=== PATIENT | female | born 1950 | race Caucasian/White ===

== ENCOUNTER 2022-07-08 11:13 | Inpatient (IN) | payer MEDICARE, OTHER ==
[2022-07-08] VITALS (9 sets, daily range): BP systolic 113–145; BP diastolic 51–80; PULSE 64–84; TEMP 97.5–98.5
[~2022-07-08] VITALS: Ht 170.2 cm; Wt 60.0 kg
[2022-07-08 11:55] LABS: BASO # 0.1 K/mm3 (0.0-0.2); BASO % 0.8 % (0.0-2.0); EOS # 0.1 K/mm3 (0.0-0.7); EOS % 1.7 % (0.0-4.0); GRAN # 4.3 K/mm3 (1.4-6.5); GRAN % 57.6 % (42.2-75.2); HEMOGLOBIN 13.5 g/dl (12.5-16.0); LYMPH # 2.3 K/mm3 (1.2-3.4); LYMPH % 30.8 % (20.0-51.0); MEAN CELL VOLUME 101 fl (80.0-100.0); MEAN CORPUSCULAR HEMOGLOBIN 33 pg (27-31); MEAN CORPUSCULAR HGB CONC 32 g/dl (33.0-37.0); MEAN PLATELET VOLUME 10.4 fl (7.4-10.4); MONO # 0.7 K/mm3 (0.1-0.6); PLATELET COUNT 242 K/mm3 (130-400); RED BLOOD COUNT 4.15 M/mm3 (4.10-5.30); REDCELL DISTRIBUTION WIDTH-CV 11.9 % (11.5-14.5)
[2022-07-08 11:57] LABS: PROTHROMBIN TIME 11.6 SECONDS (9.7-12.8)
[2022-07-08 12:00] LABS: PARTIAL THROMBOPLASTIN TIME 31.5 SECONDS (26.0-37.0)
[2022-07-08 12:11] LABS: ALANINE AMINOTRANSFERASE 20 U/L (0-55); ALBUMIN 4.2 gm/dL (3.4-4.8); ALKALINE PHOSPHATASE 38 U/L (40-150); ANION GAP 11 mmol/L (7-16); AST,SGOT 25 U/L (5-34); BILIRUBIN,TOTAL 0.6 mg/dL (0.2-1.2); BLOOD UREA NITROGEN 16 mg/dL (10-20); CALCIUM 9.3 mg/dL (8.4-10.2); CARBON DIOXIDE 25 mmol/L (23-31); CHLORIDE 105 mmol/L (98-107); CREATININE, serum 0.61 mg/dL (0.57-1.11); GLUCOSE 92 mg/dL (70-99); SODIUM 141 mmol/L (136-145); TOTAL PROTEIN 6.8 gm/dL (6.2-8.1)
[2022-07-08 12:25] LABS: TROPONIN-I < 0.010 ng/mL (0.00-0.033)
[2022-07-08 15:10] LABS: MAGNESIUM 1.8 mg/dL (1.6-2.6)
[2022-07-08 15:31] LABS: TSH w REFLEX 2.184 uIU/mL (0.350-4.940)
--- NOTE | 2022-07-08 15:35 | NUR ---
Patient to room 316 from the [facility]. A&Ox4. VSS, post op VS monitored. IV CDI, fluids infusing. Incision site middle chest CDI. Denies pain and discomfort. Nurse oriented the patient and to location, call light and room. No further needs expressed. Call light within reach
[2022-07-08] MEDS ORDERED: PRAVACHOL 40MG40 MG PO (16:03)
[2022-07-08] MEDS ORDERED: LEXAPRO20 MG PO (16:03)
[2022-07-08] MEDS ORDERED: ALEVE 220MG220 MG PO (16:04)
[2022-07-08] MEDS ORDERED: PROLIA60 MG/ML SQ (16:05)
[2022-07-09] VITALS (10 sets, daily range): BP systolic 111–141; BP diastolic 42–88; PULSE 55–69; TEMP 97.4–98.8
[2022-07-09 06:27] LABS: BASO % 0.8 % (0.0-2.0); EOS # 0.1 K/mm3 (0.0-0.7); EOS % 1.9 % (0.0-4.0); GRAN # 3.2 K/mm3 (1.4-6.5); GRAN % 60.2 % (42.2-75.2); HEMATOCRIT 38.3 % (37.0-47.0); HEMOGLOBIN 12.2 g/dl (12.5-16.0); LYMPH # 1.4 K/mm3 (1.2-3.4); LYMPH % 26.9 % (20.0-51.0); MEAN CELL VOLUME 102 fl (80.0-100.0); MEAN CORPUSCULAR HEMOGLOBIN 33 pg (27-31); MEAN CORPUSCULAR HGB CONC 32 g/dl (33.0-37.0); MEAN PLATELET VOLUME 11.1 fl (7.4-10.4); MONO # 0.5 K/mm3 (0.1-0.6); PLATELET COUNT 229 K/mm3 (130-400); RED BLOOD COUNT 3.75 M/mm3 (4.10-5.30); REDCELL DISTRIBUTION WIDTH-CV 11.8 % (11.5-14.5)
[2022-07-09 06:37] LABS: CALCIUM 9.1 mg/dL (8.4-10.2); CREATININE, serum 0.63 mg/dL (0.57-1.11); MAGNESIUM 1.9 mg/dL (1.6-2.6); POTASSIUM 4.2 mmol/L (3.5-4.5)
--- NOTE | 2022-07-09 08:00 | NUR ---
Patient sitting up in bed, A&O. VSS IV CDI. Denies pain and discomfort. Nelson intact. No reports of diarrhea. Call light within reach. Bed alarm on
--- NOTE | 2022-07-09 08:00 | NUR ---
Patient sitting up in bed, A&Ox4. VSS. IV CDI. Denies pain and discomfort. Has several questions/concerns that this nurse was able to answer. Call light within reach
--- NOTE | 2022-07-09 23:17 | NUR ---
Pt in bed for the time of assessment around 2100. Granddaughter at bedside. A&O x4. LAC INT is CDI. No needs or concerns were expressed during assessment. All medication given per emar. Belongings and call light are within reach.
[2022-07-10 01:03] VITALS: PULSE 55; TEMP 97.8
[2022-07-10 03:57] VITALS: BP 125/57; PULSE 58; TEMP 98.1
[2022-07-10 05:00] VITALS: PULSE 58; TEMP 98.1
[2022-07-10 06:20] LABS: BASO # 0.1 K/mm3 (0.0-0.2); EOS # 0.1 K/mm3 (0.0-0.7); EOS % 1.6 % (0.0-4.0); GRAN % 59.5 % (42.2-75.2); HEMOGLOBIN 12.4 g/dl (12.5-16.0); LYMPH # 1.4 K/mm3 (1.2-3.4); LYMPH % 26.8 % (20.0-51.0); MEAN CELL VOLUME 99 fl (80.0-100.0); MEAN CORPUSCULAR HEMOGLOBIN 32 pg (27-31); MEAN CORPUSCULAR HGB CONC 33 g/dl (33.0-37.0); MEAN PLATELET VOLUME 10.3 fl (7.4-10.4); MONO # 0.5 K/mm3 (0.1-0.6); MONO % 10.7 % (1.7-9.3); PLATELET COUNT 211 K/mm3 (130-400); RED BLOOD COUNT 3.83 M/mm3 (4.10-5.30); REDCELL DISTRIBUTION WIDTH-CV 11.8 % (11.5-14.5)
[2022-07-10 06:36] LABS: CREATININE, serum 0.64 mg/dL (0.57-1.11); MAGNESIUM 1.8 mg/dL (1.6-2.6); POTASSIUM 3.9 mmol/L (3.5-4.5)
[2022-07-10 07:08] VITALS: BP 117/63; PULSE 61; TEMP 97.9
--- NOTE | 2022-07-10 07:18 | NUR ---
Patient laying in bed sleeping, easily awakened with verbal command. A&Ox4. VSS. IV CDI. Denies pain and discomfort. Call light within reach
[2022-07-10] MEDS ORDERED: ELIQUIS 5MG PO (09:15)
[2022-07-10] MEDS ORDERED: CEPHALEXIN500 M1 PO (09:15)
[2022-07-10] MEDS ORDERED: BETAPACE 80MG80 MG PO (09:16)
--- NOTE | 2022-07-10 11:15 | NUR ---
Discharge paperwork reviewed with the patient and at the bedside. Patient verbalized an understanding to follow doctors orders. IV removed, tip intact. Gauze and coban covering. Patient ambulated independently to awaiting vehicle with personal belongings
== END 2022-07-10 11:15 | disposition home or self-care (01) | DRG 262 ==
LOC: COL.ER 11:13 → MEDICAL 13:18
PROVIDERS: Family Medicine; Physician Assistant; ADMIT Student in an Organized Health Care Education/Training Program
PROC: 5A2204Z Restoration of Cardiac Rhythm, Single (ICD-10-PCS; principal; 2022-07-08)
PROC: 0JH632Z Insertion of Monitoring Device into Chest Subcutaneous Tissue and Fascia, Percutaneous Approach (ICD-10-PCS; 2022-07-08)
DX: I48.91 Unspecified atrial fibrillation (principal); E78.5 Hyperlipidemia, unspecified; F32.A Depression, unspecified; M79.7 Fibromyalgia; K59.00 Constipation, unspecified; I10 Essential (primary) hypertension; J44.9 Chronic obstructive pulmonary disease, unspecified; M81.0 Age-related osteoporosis without current pathological fracture; Z23 Encounter for immunization; Z87.891 Personal history of nicotine dependence
CPT/HCPCS: OP; C1764; J1644; J2704; J7030

== ENCOUNTER 2023-10-11 14:51 | Outpatient (CLI) | payer MEDICARE, OTHER ==
[~2023-10-11] VITALS: Ht 170.2 cm; Wt 62.0 kg
[~2023-10-11 14:51] MED LIST: ALEVE 220MG220 MG PO; BETAPACE 80MG80 MG PO; CEPHALEXIN500 M1 PO; ELIQUIS 5MG PO; FLONASE NASAL S16 GM NS; FLOVENT 110MCG7.9 GM IH; FLOVENT 44MCG I13 GM IH; LEXAPRO20 MG PO; MIRTAZAPINE7.5 MG PO; PRAVACHOL 40MG40 MG PO; PROLIA60 MG/ML SQ
[2023-10-11 15:13] VITALS: BP 120/68; PULSE 63; TEMP 97.6
[2023-10-11] MEDS ORDERED: Denosumab 60 MG/ML SYRINGE SQ ONE (15:15)
== END 2023-10-11 15:18 | disposition home or self-care (01) ==
LOC: EUO 14:51
DX: M81.0 Age-related osteoporosis without current pathological fracture (principal)
CPT/HCPCS: J0897

== ENCOUNTER 2024-04-16 13:37 | Outpatient (CLI) | payer MEDICARE, OTHER ==
[~2024-04-16] VITALS: Ht 170.2 cm; Wt 63.2 kg
[2024-04-16] MEDS ORDERED: Denosumab 60 MG/ML SYRINGE SQ ONE (14:30)
[2024-04-16 14:52] VITALS: BP 128/71; PULSE 53; TEMP 98.4
== END 2024-04-16 14:53 ==
LOC: EUO 13:37
DX: M81.0 Age-related osteoporosis without current pathological fracture (principal)
CPT/HCPCS: J0897